=== PATIENT | female | born 1980 | race Caucasian/White ===

== ENCOUNTER 2024-03-04 09:17 | Day surgery (SDC) | payer BC ==
[2024-02-27 16:04] VITALS: BMI 24.7
[2024-03-04 11:25] VITALS: BP 105/68; PULSE 71; RESP 18; TEMP 98
== END 2024-03-04 11:14 | disposition home or self-care (01) ==
LOC: FASU-ENDO 09:17
PROVIDERS: ATTEND Internal Medicine Gastroenterology
PROC: 0DJD8ZZ Inspection of Lower Intestinal Tract, Via Natural or Artificial Opening Endoscopic (ICD-10-PCS; principal; 2024-03-04 10:14)
DX: Z12.11 Encounter for screening for malignant neoplasm of colon (principal)
CPT/HCPCS: 81025